=== PATIENT | male | born 1940 | race Caucasian/White ===

== ENCOUNTER → 2017-02-27 | Outpatient (CLI) | payer MEDICARE, BC ==
[~2017-02-27] MED LIST: ACIPHEX20 MG PO; ADVIL 200MG TA200 MG PO; ALTACE10 MG PO; ALTACE5 MG PO; APRESOLINE 25MG25 MG PO; ATORVASTATIN; B-12 250 MCG; BYSTOLIC10 MG PO; CIALIS5 MG PO; CRESTOR; DHEA25 M3 PO; FLOMAX; GLUCOPHAGE500 MG/TAB PO; HCTZ 25MG TAB25 MG PO; LABETALOL100 MG PO; NAFTIN11 TP; OMEGA-3 1000 MG1 CAP PO; PROSVENT PO; THE MEDICINE S200 M2 PO; TYLENOL 8 HR PO; VITAMINC1000TA PO; VITAMIND3 5000 PO
[2017-02-27 15:13] LABS: ANION GAP 12 mmol/L (7-16); BLOOD UREA NITROGEN 15 mg/dL (9-20); CALCIUM 9.5 mg/dL (8.4-10.2); CARBON DIOXIDE 30 mmol/L (22-30); CHLORIDE 97 mmol/L (98-107); CREATININE, serum 0.78 mg/dL (0.66-1.25); GLUCOSE 114 mg/dL (74-106); POTASSIUM 3.7 mmol/L (3.4-5.0); SODIUM 138 mmol/L (137-145)
[2017-02-27 15:14] LABS: C-REACTIVE PROTEIN < 0.5 mg/dL (0.0-0.9)
== END ==
LOC: COL.LAB 14:13
PROVIDERS: Internal Medicine
DX: M79.1 Myalgia (principal)

== ENCOUNTER 2017-03-10 15:15 | Emergency (ER) | payer MEDICARE, BC ==
[~2017-03-10] VITALS: Ht 175.3 cm; Wt 75.0 kg
[~2017-03-10 15:15] MED LIST changes: -APRESOLINE 25MG25 MG PO; -B-12 250 MCG; -BYSTOLIC10 MG PO; -CIALIS5 MG PO; -DHEA25 M3 PO; -GLUCOPHAGE500 MG/TAB PO; -HCTZ 25MG TAB25 MG PO; -NAFTIN11 TP; -OMEGA-3 1000 MG1 CAP PO; -PROSVENT PO; -THE MEDICINE S200 M2 PO; -VITAMINC1000TA PO; -VITAMIND3 5000 PO
[2017-03-10 15:17] VITALS: TEMP 98.9
[2017-03-10 15:41] LABS: BASO # 0.1 (0.0-0.2); BASO % 1.1 % (0.0-2.0); EOS # 0.1 (0.0-0.7); EOS % 1.9 % (0-4.0); GRAN # 5.1 (1.4-6.5); GRAN % 67.9 % (42.2-75.2); HEMATOCRIT 41.2 % (42.0-52.0); HEMOGLOBIN 13.9 g/dl (13.5-18.0); LYMPH # 1.5 (1.2-3.4); LYMPH % 19.3 % (20.0-51.0); MEAN CELL VOLUME 92 fl (80.0-100.0); MEAN CORPUSCULAR HEMOGLOBIN 31 pg (27.0-31.0); MEAN CORPUSCULAR HGB CONC 34 g/dl (33.0-37.0); MEAN PLATELET VOLUME 10.7 fl (7.4-10.4); MONO # 0.7 (0.1-0.6); MONO % 9.7 % (1.7-9.3); PLATELET COUNT 261 K/mm3 (130-400); RED BLOOD COUNT 4.49 M/mm3 (4.20-5.60); WHITE BLOOD COUNT 7.5 K/mm3 (4.8-10.8)
[2017-03-10 15:45] LABS: PROTHROMBIN TIME 10.9 SECONDS (9.7-12.8)
[2017-03-10 15:48] LABS: PARTIAL THROMBOPLASTIN TIME 32.8 SECONDS (26.0-37.0)
[2017-03-10 15:56] LABS: ADJUSTED CALCIUM 9.1 mg/dL (8.4-10.2); ALANINE AMINOTRANSFERASE 19 U/L (21-72); ALBUMIN 4.2 gm/dL (3.5-5.0); ALKALINE PHOSPHATASE 90 U/L (50-136); ANION GAP 13 mmol/L (7-16); BLOOD UREA NITROGEN 14 mg/dL (9-20); CALCIUM 9.3 mg/dL (8.4-10.2); CARBON DIOXIDE 24 mmol/L (22-30); CHLORIDE 102 mmol/L (98-107); CREATININE, serum 0.73 mg/dL (0.66-1.25); GLUCOSE 141 mg/dL (74-106); POTASSIUM 3.8 mmol/L (3.4-5.0); SODIUM 139 mmol/L (137-145)
[2017-03-10] MEDS ORDERED: HCTZ 25MG TAB25 MG PO (15:57)
[2017-03-10] MEDS ORDERED: APRESOLINE 25MG25 MG PO (15:58)
[2017-03-10] MEDS ORDERED: BYSTOLIC10 MG PO (15:59)
[2017-03-10] MEDS ORDERED: GLUCOPHAGE500 MG/TAB PO (16:00)
[2017-03-10] MEDS ORDERED: NAFTIN11 TP (16:00)
[2017-03-10] MEDS ORDERED: CIALIS5 MG PO (16:01)
[2017-03-10] MEDS ORDERED: DHEA25 M3 PO (16:01)
[2017-03-10 16:08] LABS: TROPONIN-I < 0.012 ng/mL (0.000-0.034)
[2017-03-10] MEDS ORDERED: OMEGA-3 1000 MG1 CAP PO (16:18)
[2017-03-10] MEDS ORDERED: B-12 250 MCG (16:19)
[2017-03-10] MEDS ORDERED: VITAMINC1000TA PO (16:20)
[2017-03-10] MEDS ORDERED: VITAMIND3 5000 PO (16:21)
[2017-03-10] MEDS ORDERED: THE MEDICINE S200 M2 PO (16:23)
[2017-03-10] MEDS ORDERED: PROSVENT PO (16:23)
[2017-03-10 18:27] VITALS: BP 158/82; PULSE 61
== END 2017-03-10 18:40 | disposition home or self-care (01) ==
LOC: COL.ER 15:15
PROVIDERS: Family Medicine
DX: R07.89 Other chest pain (principal); I10 Essential (primary) hypertension; E11.9 Type 2 diabetes mellitus without complications; E78.5 Hyperlipidemia, unspecified

== ENCOUNTER → 2017-04-17 | Outpatient (CLI) | payer MEDICARE, BC ==
[~2017-04-17] MED LIST changes: +APRESOLINE 25MG25 MG PO; +B-12 250 MCG; +BYSTOLIC10 MG PO; +CIALIS5 MG PO; +DHEA25 M3 PO; +GLUCOPHAGE500 MG/TAB PO; +HCTZ 25MG TAB25 MG PO; +NAFTIN11 TP; +OMEGA-3 1000 MG1 CAP PO; +PROSVENT PO; +THE MEDICINE S200 M2 PO; +VITAMINC1000TA PO; +VITAMIND3 5000 PO
== END ==
LOC: COL.RAD 08:50
DX: M48.16 Ankylosing hyperostosis [Forestier], lumbar region (principal); M47.817 Spondylosis without myelopathy or radiculopathy, lumbosacral region; M48.07 Spinal stenosis, lumbosacral region; M25.78 Osteophyte, vertebrae

== ENCOUNTER → 2017-04-23 | Outpatient (CLI) | payer MEDICARE, BC | LOC: MHCPAIN 09:17 | DX: G89.29 Other chronic pain (principal); M47.817 Spondylosis without myelopathy or radiculopathy, lumbosacral region; M53.3 Sacrococcygeal disorders, not elsewhere classified | CPT/HCPCS: G0463 ==

== ENCOUNTER 2017-04-26 12:30 | Outpatient (RCR) | payer MEDICARE, BC | END 2017-04-27 08:22 | disposition still patient (30) | LOC: WSPT 12:30 | DX: M48.10 Ankylosing hyperostosis [Forestier], site unspecified (principal) | CPT/HCPCS: G8978-GP; G8979-GP; G8980-GP ==

== ENCOUNTER → 2019-07-17 | Outpatient (CLI) | payer MEDICARE, BC ==
[~2019-07-17] MED LIST changes: +CIPRO 500MG TA500 MG PO; +FLAGYL500 MG PO
== END ==
LOC: COL.RAD 14:02
DX: K57.32 Diverticulitis of large intestine without perforation or abscess without bleeding (principal); K57.30 Diverticulosis of large intestine without perforation or abscess without bleeding
CPT/HCPCS: Q9967

== ENCOUNTER 2020-06-22 13:49 | Observation (INO) | payer MEDICARE, BC ==
[~2020-06-22] VITALS: Ht 172.7 cm; Wt 68.9 kg
[~2020-06-22 13:49] MED LIST changes: +ANDROGEL1.62PKT2 TOP; +BETAPACE 80MG80 MG PO; +CLEOCIN HCL300 MG PO; +DIGESTIVE ADVA1 EAC1 PO; +ELIQUIS 5MG PO; +GLUCOSAMINE SUL1 TAB PO; +MULTAQ400 MG PO; +PROTONIX 40MG T40 MG PO; +TOPROL XL 25MG25 MG PO
[2020-06-22 14:13] LABS: BASO # 0.1 (0.0-0.2); BASO % 1.3 % (0.0-2.0); EOS # 0.7 (0.0-0.7); EOS % 7.7 % (0-4.0); GRAN # 5.4 (1.4-6.5); GRAN % 63.9 % (42.2-75.2); HEMATOCRIT 40.2 % (42.0-52.0); HEMOGLOBIN 13.3 g/dl (13.5-18.0); LYMPH # 1.4 (1.2-3.4); LYMPH % 16.5 % (20.0-51.0); MEAN CELL VOLUME 90 fl (80.0-100.0); MEAN CORPUSCULAR HEMOGLOBIN 30 pg (27.0-31.0); MEAN CORPUSCULAR HGB CONC 33 g/dl (33.0-37.0); MEAN PLATELET VOLUME 10.5 fl (7.4-10.4); MONO # 0.9 (0.1-0.6); MONO % 10.4 % (1.7-9.3); PLATELET COUNT 284 K/mm3 (130-400); RED BLOOD COUNT 4.48 M/mm3 (4.20-5.60); REDCELL DISTRIBUTION WIDTH-CV 13.5 % (11.5-14.5)
[2020-06-22 14:21] LABS: INR 1.3 (0.8-3.0)
[2020-06-22 14:24] LABS: PARTIAL THROMBOPLASTIN TIME 36.1 SECONDS (26.0-37.0)
[2020-06-22 14:33] LABS: ALANINE AMINOTRANSFERASE 12 U/L (4-49); ALBUMIN 4.5 gm/dL (3.5-5.0); ALKALINE PHOSPHATASE 93 U/L (50-136); ANION GAP 10 mmol/L (7-16); AST,SGOT 28 U/L (15-37); BILIRUBIN,TOTAL 1.4 mg/dL (0.0-1.0); BLOOD UREA NITROGEN 24 mg/dL (9-20); CALCIUM 9.5 mg/dL (8.4-10.2); CARBON DIOXIDE 25 mmol/L (22-30); CHLORIDE 102 mmol/L (98-107); CREATININE, serum 1.01 (0.66-1.25); GLUCOSE 111 mg/dL (74-106); MAGNESIUM 1.9 mg/dL (1.6-2.3); SODIUM 137 mmol/L (137-145); TOTAL PROTEIN 7.7 gm/dL (6.4-8.2)
[2020-06-22 14:49] LABS: COLLECTION METHOD CLEAN CATCH
[2020-06-22 14:53] LABS: TROPONIN-I < 0.012 ng/mL (0.000-0.035)
[2020-06-22 14:56] LABS: MUCOUS Present /lpf; PH 5 (5-8); SQUAMOUS EPITHELIAL 0-2 /hpf; URINE APPEARANCE Hazy; URINE BACTERIA None Seen /hpf; URINE BILIRUBIN Negative (NEGATIVE); URINE BLOOD Negative (NEGATIVE); URINE COLOR Yellow; URINE GLUCOSE Negative (NEGATIVE); URINE KETONE Negative (NEGATIVE); URINE LEUKOCYTE ESTERASE Negative (NEGATIVE); URINE NITRATE Negative (NEGATIVE); URINE PROTEIN(semi-quant) Negative (NEGATIVE)
[2020-06-22 16:50] VITALS: BP 183/72; PULSE 57; TEMP 97.9
[2020-06-22 19:46] VITALS: BP 132/63; PULSE 60; TEMP 98
[2020-06-22 23:07] VITALS: BP 114/50; PULSE 59; TEMP 98.1
[2020-06-23 04:00] VITALS: BP 140/78; PULSE 62; TEMP 97.9
[2020-06-23 07:07] LABS: BASO # 0.1 (0.0-0.2); BASO % 0.9 % (0.0-2.0); EOS # 0.9 (0.0-0.7); EOS % 11.8 % (0-4.0); GRAN # 4.3 (1.4-6.5); GRAN % 56.4 % (42.2-75.2); HEMATOCRIT 37.1 % (42.0-52.0); LYMPH # 1.3 (1.2-3.4); LYMPH % 17.3 % (20.0-51.0); MEAN CELL VOLUME 90 fl (80.0-100.0); MEAN CORPUSCULAR HEMOGLOBIN 29 pg (27.0-31.0); MEAN CORPUSCULAR HGB CONC 32 g/dl (33.0-37.0); MEAN PLATELET VOLUME 10.7 fl (7.4-10.4); MONO % 13.5 % (1.7-9.3); PLATELET COUNT 275 K/mm3 (130-400); RED BLOOD COUNT 4.11 M/mm3 (4.20-5.60); REDCELL DISTRIBUTION WIDTH-CV 13.3 % (11.5-14.5)
[2020-06-23 07:17] LABS: CALCIUM 9.3 mg/dL (8.4-10.2); CREATININE, serum 0.9 (0.66-1.25); POTASSIUM 4.1 mmol/L (3.4-5.0)
[2020-06-23 07:45] VITALS: BP 159/64; PULSE 54; TEMP 97.9
[2020-06-23 11:52] VITALS: BP 169/66; PULSE 56; TEMP 97.8
[2020-06-23] MEDS ORDERED: BETAPACE 120MG120 MG PO (15:26)
[2020-06-23] MEDS ORDERED: CRESTOR20 MG PO (15:27)
[2020-06-23] MEDS ORDERED: ASPIRIN E.C. 8181 MG PO (15:27)
[2020-06-23 15:55] VITALS: BP 121/63; PULSE 87; TEMP 98.1
== END 2020-06-23 16:30 | disposition home or self-care (01) ==
LOC: COL.ER 13:49 → MEDICAL 15:54
PROVIDERS: Emergency Medicine; ADMIT Student in an Organized Health Care Education/Training Program
DX: R20.0 Anesthesia of skin (principal); I10 Essential (primary) hypertension; I48.0 Paroxysmal atrial fibrillation; E29.1 Testicular hypofunction; R73.03 Prediabetes; I34.0 Nonrheumatic mitral (valve) insufficiency; K21.9 Gastro-esophageal reflux disease without esophagitis; Z79.01 Long term (current) use of anticoagulants; Z95.818 Presence of other cardiac implants and grafts; Z79.899 Other long term (current) drug therapy; Z87.891 Personal history of nicotine dependence; Z79.84 Long term (current) use of oral hypoglycemic drugs; Z23 Encounter for immunization
CPT/HCPCS: G0378

== ENCOUNTER 2020-09-03 13:32 | Day surgery (SDC) | payer MEDICARE, BC ==
[2020-09-03] VITALS (9 sets, daily range): BP systolic 131–166; BP diastolic 65–90; PULSE 66–80; TEMP 97.7–98
[~2020-09-03] VITALS: Ht 172.7 cm; Wt 70.4 kg
[~2020-09-03 13:32] MED LIST changes: +ASPIRIN E.C. 8181 MG PO; +BETAPACE 120MG120 MG PO; +CRESTOR20 MG PO
[2020-09-03] MEDS ORDERED: TYLENOL 500MG500 MG PO (14:39)
[2020-09-03] MEDS ORDERED: PROTONIX20 MG PO (14:39)
[2020-09-03] MEDS ORDERED: ASPIRIN 81M81 MG/TA2 PO (14:39)
[2020-09-03] MEDS ORDERED: TESTOSTERONE GEL TOP (14:40)
[2020-09-03] MEDS ORDERED: ELIQUIS 5MG PO (14:42)
[2020-09-03] MEDS ORDERED: HCTZ 25MG TAB25 MG PO (14:42)
[2020-09-03] MEDS ORDERED: CIALIS5 MG PO (14:42)
[2020-09-03] MEDS ORDERED: BETAPACE 120MG120 MG PO (14:43)
[2020-09-03] MEDS ORDERED: PROBIOTIC FORMU1 CAP PO (14:43)
[2020-09-03] MEDS ORDERED: B COMPLEX & B121 TAB PO (14:44)
[2020-09-03] MEDS ORDERED: CRESTOR20 MG PO (14:44)
[2020-09-03] MEDS ORDERED: GLUCOPHAGE500 MG/TAB PO (14:44)
--- NOTE | 2020-09-03 20:30 | NUR ---
Received report from KRYSTYNA Conrad. Pt is currently resting in bed. Pt urine color is pale yellow. Pt has no complaints of pian at this time. Pt was assisted the restroom. Pt stated that he did not have pain but did have a weird feeling around his penis. I explained to pt that he has an ointment that is ordered for tonight and that he also could have something for pain if he needed it. Pt agreed to have the ointment and a Tylenol before he goes to bed. Pt was able to eat his dinner and tolerated well. Pt is able to tolerate fluids as well as his fluids were discontinued at this time.
--- NOTE | 2020-09-03 21:46 | NUR ---
Pt currently resting in bed. Pt urine color has changed just a bit. His urine is pink tinged. Pt did have some complaints of pain and was given Tylenol at this time and his scheduled ointment was also applied at this time. Pt has his call light within reach.
[2020-09-04 01:12] VITALS: BP 104/45; PULSE 56; TEMP 98.1
[2020-09-04 05:44] VITALS: BP 150/68; PULSE 61; TEMP 97.9
--- NOTE | 2020-09-04 05:48 | NUR ---
Pt currently resting in bed. Pt has no other complaints of pain throughout the night. Pt urine is still pink tinged. Pt has been drinking fluids well during the night. Pt has his call light within reach.
--- NOTE | 2020-09-04 06:20 | NUR ---
Pt is sitting up in bed. Pt stated that he has no pain at this time. Pt has his call light within reach. Pt urine looks clear, a small amount of pink tinged urine is in the bag.
[2020-09-04 08:27] VITALS: BP 139/66; PULSE 54; TEMP 98.1
--- NOTE | 2020-09-04 08:30 | NUR ---
Patient alert and oriented, answers questions appropriately. See assessment. No c/o at this time.
--- NOTE | 2020-09-04 09:16 | NUR ---
CBI clamped at 0700. Dr Amaro here to see patient.
--- NOTE | 2020-09-04 10:21 | NUR ---
Prime and pull bernabe catheter completed per drs order. Catheter backprimed with 200ml NS. Tolerated well.
--- NOTE | 2020-09-04 12:50 | NUR ---
stopped by but nothing needed at this time.
[2020-09-04 13:17] VITALS: BP 159/59; PULSE 55; TEMP 97.4
--- NOTE | 2020-09-04 17:26 | NUR ---
Six bottle routine completed, urine progressively clearer, no clots noted. Discharge instructions reviewed with patient, verbalized understanding. Discharged ambulatory to auto/home with family at 1715.
== END 2020-09-04 17:15 | disposition home or self-care (01) ==
LOC: SDCO 13:32 → SURG 18:00 → SDCO 09-04 17:15
DX: N40.1 Benign prostatic hyperplasia with lower urinary tract symptoms (principal); N13.8 Other obstructive and reflux uropathy; R39.12 Poor urinary stream; I10 Essential (primary) hypertension; I48.91 Unspecified atrial fibrillation; E11.9 Type 2 diabetes mellitus without complications; E78.5 Hyperlipidemia, unspecified; M06.9 Rheumatoid arthritis, unspecified; Z20.828 Contact with and (suspected) exposure to other viral communicable diseases; K21.9 Gastro-esophageal reflux disease without esophagitis; Z79.01 Long term (current) use of anticoagulants; Z85.828 Personal history of other malignant neoplasm of skin; Z79.899 Other long term (current) drug therapy; Z79.82 Long term (current) use of aspirin; Z88.6 Allergy status to analgesic agent; Z88.1 Allergy status to other antibiotic agents; Z79.890 Hormone replacement therapy; Z79.84 Long term (current) use of oral hypoglycemic drugs
CPT/HCPCS: OP; J0360; J0690; J2405; J2704; J3010; J7030

== ENCOUNTER → 2020-12-27 | Outpatient (CLI) | payer MEDICARE, BC ==
[~2020-12-27] MED LIST changes: +ASPIRIN 81M81 MG/TA2 PO; +B COMPLEX & B121 TAB PO; +PROBIOTIC FORMU1 CAP PO; +PROTONIX20 MG PO; +TESTOSTERONE GEL TOP; +TYLENOL 500MG500 MG PO
== END ==
LOC: COL.LAB 09:45
DX: Z01.812 Encounter for preprocedural laboratory examination (principal); Z20.822 Contact with and (suspected) exposure to COVID-19